=== PATIENT | female | born 1990 | race Caucasian/White ===

== ENCOUNTER 2017-03-12 00:07 | Emergency (ER) | payer MEDICAID ==
[~2017-03-12] VITALS: Ht 152.4 cm; Wt 63.0 kg
[~2017-03-12 00:07] MED LIST: FOLI-43 PO; PREN-88 PO
[2017-03-12 05:25] VITALS: BP 110/66
== END 2017-03-12 05:25 | disposition home or self-care (01) ==
LOC: EDSTATUS 00:07 → ER 00:07
DX: O26.892 Other specified pregnancy related conditions, second trimester (principal); M25.571 Pain in right ankle and joints of right foot; Z3A.25 25 weeks gestation of pregnancy
CPT/HCPCS: 76815; 99284; Z7610; 99281

== ENCOUNTER 2018-11-03 11:10 | Emergency (ER) | payer MEDICAID ==
[~2018-11-03] VITALS: Ht 152.4 cm; Wt 59.0 kg
[2018-11-03] MEDS ORDERED: TETANUS, DIPHTHERIA, PERTUSSIS VAC/PF 0.5ML (>7YR OLD) IM ONE (12:00)
[2018-11-03] MEDS ORDERED: ONDANSETRON 4MG ODT PO ONE (12:00)
[2018-11-03] MEDS ORDERED: HYDROCODONE/ACETAMINOPHEN 5/325MG TABLET PO ONE (12:00)
[2018-11-03 12:54] VITALS: BP 125/72
[2018-11-03] MEDS ORDERED: LIDOCAINE HCL/PF 1% 10 MG/ML 5ML VIAL IJ ONE (15:15)
[2018-11-03] MEDS ORDERED: CEPHALEXIN 250MG CAPSULE PO ONE (15:45)
== END 2018-11-03 16:49 | disposition home or self-care (01) ==
LOC: ER 11:16
DX: S61.210A Laceration without foreign body of right index finger without damage to nail, initial encounter (principal); W22.8XXA Striking against or struck by other objects, initial encounter; Y93.89 Activity, other specified; Y92.89 Other specified places as the place of occurrence of the external cause; Y99.8 Other external cause status
CPT/HCPCS: 12001; 73140; 81025; 90471; 90715; 99284; J3490; Q0162

== ENCOUNTER 2018-11-04 21:22 | Emergency (ER) | payer MEDICAID ==
[~2018-11-04] VITALS: Ht 152.4 cm; Wt 55.0 kg
[2018-11-04 21:44] VITALS: BP 123/62
== END 2018-11-04 23:30 | disposition left against medical advice (07) ==
LOC: ER 21:22
DX: Z53.21 Procedure and treatment not carried out due to patient leaving prior to being seen by health care provider (principal)

== ENCOUNTER 2018-11-15 10:06 | Emergency (ER) | payer MEDICAID ==
[~2018-11-15] VITALS: Ht 152.4 cm; Wt 54.5 kg
[2018-11-15 14:15] VITALS: BP 120/65
== END 2018-11-15 14:16 | disposition home or self-care (01) ==
LOC: ER 10:40
DX: S61.210D Laceration without foreign body of right index finger without damage to nail, subsequent encounter (principal); X58.XXXD Exposure to other specified factors, subsequent encounter
CPT/HCPCS: 99283

== ENCOUNTER 2019-08-25 10:41 | Emergency (ER) | payer MEDICAID ==
[~2019-08-25] VITALS: Ht 152.4 cm; Wt 60.0 kg
[2019-08-25] MEDS ORDERED: LIDOCAINE 5% PATCH TOP STA (12:09)
[2019-08-25] MEDS ORDERED: KETOROLAC 30MG/ML VIAL IV STA (12:09)
[2019-08-25 12:42] LABS: CHLORIDE 107 mEq/L (98-107)
[2019-08-25 13:10] LABS: HCG SCREEN NEGATIVE
[2019-08-25] MEDS ORDERED: IOHEXOL-350 100 ML BOTTLE ONE (14:55)
[2019-08-25 15:45] VITALS: BP 125/78
== END 2019-08-25 16:20 | disposition home or self-care (01) ==
LOC: ER 10:41
DX: M54.2 Cervicalgia (principal); V43.52XA Car driver injured in collision with other type car in traffic accident, initial encounter; Y93.89 Activity, other specified; Y92.488 Other paved roadways as the place of occurrence of the external cause
CPT/HCPCS: 36415; 70496; 70498; 80048; 81025; 84703; 96374; 99284; J1885; Q9967

== ENCOUNTER 2020-10-28 14:56 | Emergency (ER) | payer MEDICAID ==
[~2020-10-28] VITALS: Ht 152.4 cm; Wt 62.0 kg
[2020-10-28 15:16] VITALS: BP 118/74
== END 2020-10-28 16:47 | disposition left against medical advice (07) ==
LOC: ER 15:54
DX: Z53.21 Procedure and treatment not carried out due to patient leaving prior to being seen by health care provider (principal)

== ENCOUNTER 2022-06-21 18:05 | Emergency (ER) | payer MEDICAID ==
[~2022-06-21] VITALS: Ht 152.4 cm; Wt 63.0 kg
[2022-06-21] MEDS ORDERED: ACETAMINOPHEN 325MG TABLET PO PRN (21:45)
[2022-06-21 22:53] LABS: BASOPHILS % 0.6 % (0.0-2.0); EOSINOPHILS % 1.6 % (0.0-5.0); HEMATOCRIT. 40.7 % (36.0-48.0); HEMOGLOBIN. 13.8 g/dL (12.0-16.0); LYMPHOCYTES % 38.3 % (20.0-50.0); MEAN CORPUSCULAR HEMOGLOBIN 28.7 pg (28.0-32.0); MEAN CORPUSCULAR VOLUME 84.5 fL (81.0-99.0); MEAN PLATELET VOLUME 7.3 fl (7.4-10.4); MONOCYTES % 7.7 % (2.0-8.0); NEUTROPHILS % 51.8 % (40.0-76.0); PLATELET 431 x1000/uL (130-400); RED BLOOD CELL COUNT 4.82 mill/uL (4.2-5.4); RED CELL DISTRIBUTION WIDTH 13.4 % (11.6-14.6)
[2022-06-21 22:55] LABS: CHLORIDE 102 mEq/L (98-107)
[2022-06-21] MEDS ORDERED: SODIUM CHLORIDE 0.9% 1,000 ML IV ONE (23:00)
[2022-06-21 23:20] LABS: B-HCG QUANTITATIVE 3528 mIU/mL (<3)
[2022-06-22] MEDS ORDERED: METHOTREXATE SODIUM/PF 50 MG/2 ML VIAL IM NR (00:45)
[2022-06-22] MEDS ORDERED: ACET-2708 MT (01:39)
[2022-06-22 04:00] VITALS: BP 115/83
[2022-07-09] MEDS ORDERED: IBUP-2030 MT (08:00)
== END 2022-06-22 04:40 | disposition home or self-care (01) ==
LOC: ER 18:05 → MICUSO 06-22 00:25 → UNDOADMIN 06-22 00:25 → UNDODISIN 06-22 04:40
DX: O00.90 Unspecified ectopic pregnancy without intrauterine pregnancy (principal); O08.9 Unspecified complication following an ectopic and molar pregnancy; O26.891 Other specified pregnancy related conditions, first trimester; Z3A.01 Less than 8 weeks gestation of pregnancy
CPT/HCPCS: 36415; 76801; 76817; 80053; 84702; 85025; 86850; 86900; 86901; 96360; 96361; 96372; 99284; J7030; J9260; 99285